=== PATIENT | male | born 1950 | race Caucasian/White ===

== ENCOUNTER 2017-11-26 14:00 | Inpatient (IN) | payer OTHER, SELFPAY ==
[2017-11-26 14:38] VITALS: BP 115/72; PULSE 94; RESP 20; TEMP 36.6; O2SAT 90; BMI 30.9
[2017-11-26 17:00] LABS: Bedside Glucose 91 mg/dL (70-110)
--- NOTE | 2017-11-26 18:03 | NURSING ---
and patient aware he is a fall risk and must ask for staff assist. [id number]
[2017-11-26 18:50] VITALS: O2SAT 95
[2017-11-26 19:40] VITALS: BP 123/88; PULSE 93; RESP 22; TEMP 36.7; O2SAT 92
[2017-11-26 20:54] VITALS: BMI 30.9
[2017-11-26] MEDS: Mirtazapine 30 MG Tablet PO (21:01)
[2017-11-26] MEDS: Senna/Docusate Sodium 1 Tablet 2 TABLET PO (21:01)
[2017-11-26] MEDS: Atorvastatin Calcium 80 MG Tablet PO (21:01)
[2017-11-27] MEDS: Enoxaparin 40 MG/0.4 ML Syringe SC (05:07)
[2017-11-27 06:56] LABS: Bedside Glucose 91 mg/dL (70-110)
[2017-11-27 07:27] VITALS: BP 125/79; PULSE 76; RESP 18; TEMP 36.4; O2SAT 93
[2017-11-27] MEDS: Lisinopril 5 MG Tablet PO (07:33)
[2017-11-27] MEDS: Sertraline 50 MG Tablet 25 MG PO (07:33)
[2017-11-27] MEDS: Aspirin 81 MG TAB.CHEW PO (07:33)
[2017-11-27] MEDS: Clopidogrel Bisulfate 75 MG Tablet PO (07:33)
[2017-11-27 07:44] LABS: Hematocrit 46.3 % (40-54); Hemoglobin 15.3 g/dl (13.0-16.5); Mean Corpuscular Hgb 29.8 pg (27.0-32.0); Mean Corpuscular Volume 90.1 fL (80-94); Mean Platelet Vol. 9.5 fl (6.2-12.0); Platelet Count 264 K/mm3 (150-450); RBC Distribution Width CV 12.9 % (11.6-14.6); RBC Distribution Width SD 42.4 fl (35.1-43.9); Red Blood Count 5.14 M/mm3 (4.6-6.2); White Blood Count 9.5 K/mm3 (4.4-11.0)
[2017-11-27 07:58] LABS: Scan Indicated on CBC? Y/N NO
[2017-11-27 08:10] LABS: Anion Gap 8 (5-15); BUN 17 mg/dL (7-18); BUN/Creat Ratio 18.3 RATIO (10-20); Calcium,Total 8.8 mg/dL (8.5-10.1); Chloride 101 mmol/L (98-107); Creatinine, Serum 0.93 mg/dL (0.70-1.30); EST Glomerular Filtration Rate 87 mL/min (>60); Est Glom Filt Rate - Afr Amer 105 mL/min (>60); Estimated Creatinine Clearance 76.61 ml/min; Glucose 84 mg/dL (74-106); Potassium 4.1 mmol/L (3.5-5.1); Sodium Level 136 mmol/L (136-145)
[2017-11-27 08:37] VITALS: BMI 30.9
--- NOTE | 2017-11-27 10:52 | PCM.HP.COS ---
History of Present Illness Date of Admission: 11/26/17 Chief Complaint: CVA The patient is a 67 year old right handed male admitted on 11/26/17 from [facility] to the rehab unit for rehabilitation for debility, s/p left basal ganglia, left occipital stoke and left M1/M2 stenosis. 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 The patient lives with in a 2 story home with at least 12 steps to get into the house. The patient was previously completely functionally independent, doing all his own ADLs. He is admitted to the rehab unit in order to restore his previous level of functional independence. Per OSH: Patient was last seen normal by his around 8:30 AM, Around 10 Am he was noted to have recurrent falls and right arm weakness. Was taken to [facility] his initial NIHSS was reported 17, then improved to 4. CT brain showed bilateral chronic cerebellar and thalamic infarcts, no acute changes. CTA brain showed thrombus in proximal left MCA and occluded L intracranial L ICA. He was transferred to [facility] where he was seen by Dr. Mendoza, it was determined that he was not a candidate for TPA since his weakness and fall occurred at 10 AM, he was out of the window. Past Medical History Allergies No Known Allergies Allergy (Verified 11/26/17 16:59) Home Medications: Ambulatory Orders Medication Instructions Recorded Aspirin [Aspirin, Baby] 81 mg PO DAILY@0800 11/26/17 Atorvastatin Calcium [Lipitor] 80 mg PO QHS 11/26/17 Clopidogrel Bisulfate [Plavix] 75 mg PO DAILY 11/26/17 Lisinopril [Zestril] 5 mg PO DAILY 11/26/17 Metformin HCl [Glucophage] 500 mg PO BIDCM 11/26/17 Mirtazapine [Remeron] 30 mg PO QHS 11/26/17 Sertraline HCl [Zoloft] 25 mg PO DAILY 11/26/17 Surgical History: - - Thrombectomy in 2014 Lives: Spouse/ Significant Other Smoking Status: Former smoker Tobacco Use: Non-smoker Alcohol: None Drugs: None Review of Systems Constitutional: Denies: Chills, Fever, Weight Change HEENT: Denies: Head Aches, Sinus Congestion, Sinus Drainage Cardiovascular: Denies: Chest Pain, Palpitations Respiratory: Denies: Cough, Shortness of breath at rest, Sputum production Gastrointestinal: Denies: Abdominal Pain, Nausea, Vomiting Genitourinary: Denies: Dysuria Musculoskeletal: Denies: Joint Pain, Joint Tenderness Skin: Denies: Rash, Wounds Neurological: Denies: Numbness, Tingling, Focal weakness Psychiatric: Denies: Anxiety, Depression, Homicidal Ideations, Suicidal Ideations Hematologic/ Lymphatic: Denies: Easy Bruising, Easy Bleeding VTE Information - Inpt Only VTE Present on Admission: No VTE Mechan Device Prophylaxis: SCD's, Knee High VERONIKA Hose VTE Pharm Prophylaxis ordered?: Yes Patient Problems: Active and Suspected Problems Stroke (Acute) - Physical Exam General: Alert, Oriented x3, Cooperative HEENT: Atraumatic, PERRLA, EOMI, Normocephalic Neck: Supple, No JVD, Negative Carotid Bruits Lungs: Clear to auscultation, Normal air movement Cardiovascular: Regular rate, No murmurs Abdomen: Bowel Sounds Present, Soft, Non Tender Extremities: No edema, Capillary Refill Less than 3 Seconds Skin: No rashes, No breakdown Musculoskeletal: No Tenderness to Palpation of Joints or Extremities Neurological: Cranial nerves II-XII grossly intact Psych/Mental Status: Normal Affect, Appropriate, Alert and oriented to time, place, person, mood and affect Vital Signs Temp Pulse Resp BP Pulse Ox 97.6 F L 76 18 125/79 H 93 11/27/17 07:27 11/27/17 07:27 11/27/17 07:27 11/27/17 07:27 11/27/17 07:27 Oxygen Delivery Method Room Air Weight: 89.8 kg Body Mass Index (BMI) 30.9 Intake and Output for Last 24 Hours 11/25/17 11/26/17 11/27/17 23:59 23:59 23:59 Intake Total 240 / 240 Output Total 400 / 400 200 / 200 Balance -400 / -400 40 / 40 Laboratory Tests Past 24 Hrs 11/27/17 11/27/17 07:26 07:26 WBC 9.5 RBC 5.14 Hgb 15.3 Hct 46.3 MCV 90.1 MCH 29.8 MCHC 33.0 RDW 12.9 RDW Differential 42.4 Plt Count 264 MPV 9.5 Sodium 136 Potassium 4.1 Chloride 101 Carbon Dioxide 27.0 Anion Gap 8 BUN 17 Creatinine 0.93 Estim Creat Clear Calc 76.61 Est GFR (MDRD) Af Amer 105 Est GFR (MDRD) Non-Af 87 BUN/Creatinine Ratio 18.3 Glucose 84 Calcium 8.8 POC Glucose 11/27/17 11/26/17 06:45 16:56 POC Glucose 91 91 Active Medications Acetaminophen (Tylenol) 650 mg PO Q6H PRN PRN PRN Reason: Mild Pain (0-3/10)/Headache Last Admin: 11/27/17 11:00 Dose: 650 mg Aspirin (Aspirin, Baby) 81 mg PO DAILY@0800 [facility] Last Admin: 11/28/17 07:51 Dose: 81 mg Atorvastatin Calcium (Lipitor) 80 mg PO QHS [facility] Last Admin: 11/27/17 21:39 Dose: 80 mg Bisacodyl (Dulcolax) 10 mg RECTAL .PRN X 1 PRN PRN Reason: Constipation Clopidogrel Bisulfate (Plavix) 75 mg PO DAILY [facility] Last Admin: 11/28/17 07:51 Dose: 75 mg Enoxaparin Sodium (Lovenox) 40 mg SC DAILY@0600 [facility] Last Admin: 11/28/17 05:24 Dose: 40 mg Lisinopril (Zestril) 5 mg PO DAILY [facility] Last Admin: 11/28/17 07:51 Dose: 5 mg Magnesium Hydroxide (Milk Of Magnesia) 30 ml PO .PRN X 1 PRN PRN Reason: Constipation [facility] Last Admin: 11/28/17 07:50 Dose: 500 mg Mirtazapine (Remeron) 30 mg PO QHS [facility] Last Admin: 11/27/17 21:39 Dose: 30 mg Senna/Docusate Sodium (Senokot-S, Paulina-Colace) 2 tablet PO BID [facility] Last Admin: 11/28/17 07:51 Dose: Not Given Sertraline HCl (Zoloft) 25 mg PO DAILY [facility] Last Admin: 11/28/17 07:50 Dose: 25 mg Assessment/Plan All Active Problems Stroke (Acute) Debility s/p left basal ganglia, left occipital stoke and left M1/M2 stenosis. 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 Goal of rehab is to restore previous level of functional independent. Plan: - Physical therapy for gait and balance - Occupational Therapy for ADLs - Speech therapy - As needed analgesics - Bowel protocol - Stroke prevention on ASA, Plavix, and Statin - DVT prophylaxis: SCDs, Lovenox - Hypertension: Stable with good control, continue Lisinopril. Keep BP < 130/80 mmHg - Check LDL and Hba1c - Goal Hba1c <7% - Diabetes type 2 => continue home medication.
[2017-11-27] MEDS: Acetaminophen 325 MG Tablet 650 MG PO (11:00)
--- NOTE | 2017-11-27 11:07 | HP.PCM.COS_ITS ---
History of Present Illness Date of Admission: 11/26/17 Chief Complaint: CVA The patient is a 67 year old right handed male admitted on 11/26/17 from [facility] to the rehab unit for rehabilitation for debility, s/p left basal ganglia, left occipital stoke and left M1/M2 stenosis. 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 The patient lives with in a 2 story home with at least 12 steps to get into the house. The patient was previously completely functionally independent, doing all his own ADLs. He is admitted to the rehab unit in order to restore his previous level of functional independence. Per OSH: Patient was last seen normal by his around 8:30 AM, Around 10 Am he was noted to have recurrent falls and right arm weakness. Was taken to [facility] his initial NIHSS was reported 17, then improved to 4. CT brain showed bilateral chronic cerebellar and thalamic infarcts, no acute changes. CTA brain showed thrombus in proximal left MCA and occluded L intracranial L ICA. He was transferred to [facility] where he was seen by Dr. Mendoza, it was determined that he was not a candidate for TPA since his weakness and fall occurred at 10 AM, he was out of the window. Past Medical History Allergies No Known Allergies Allergy (Verified 11/26/17 16:59) Home Medications: Ambulatory Orders Medication Instructions Recorded Aspirin [Aspirin, Baby] 81 mg PO DAILY@0800 11/26/17 Atorvastatin Calcium [Lipitor] 80 mg PO QHS 11/26/17 Clopidogrel Bisulfate [Plavix] 75 mg PO DAILY 11/26/17 Lisinopril [Zestril] 5 mg PO DAILY 11/26/17 Metformin HCl [Glucophage] 500 mg PO BIDCM 11/26/17 Mirtazapine [Remeron] 30 mg PO QHS 11/26/17 Sertraline HCl [Zoloft] 25 mg PO DAILY 11/26/17 Surgical History: - - Thrombectomy in 2014 Lives: Spouse/ Significant Other Smoking Status: Former smoker Tobacco Use: Non-smoker Alcohol: None Drugs: None Review of Systems Constitutional: Denies: Chills, Fever, Weight Change HEENT: Denies: Head Aches, Sinus Congestion, Sinus Drainage Cardiovascular: Denies: Chest Pain, Palpitations Respiratory: Denies: Cough, Shortness of breath at rest, Sputum production Gastrointestinal: Denies: Abdominal Pain, Nausea, Vomiting Genitourinary: Denies: Dysuria Musculoskeletal: Denies: Joint Pain, Joint Tenderness Skin: Denies: Rash, Wounds Neurological: Denies: Numbness, Tingling, Focal weakness Psychiatric: Denies: Anxiety, Depression, Homicidal Ideations, Suicidal Ideations Hematologic/ Lymphatic: Denies: Easy Bruising, Easy Bleeding VTE Information - Inpt Only VTE Present on Admission: No VTE Mechan Device Prophylaxis: SCD's, Knee High VERONIKA Hose VTE Pharm Prophylaxis ordered?: Yes Patient Problems: Active and Suspected Problems Stroke (Acute) - Physical Exam General: Alert, Oriented x3, Cooperative HEENT: Atraumatic, PERRLA, EOMI, Normocephalic Neck: Supple, No JVD, Negative Carotid Bruits Lungs: Clear to auscultation, Normal air movement Cardiovascular: Regular rate, No murmurs Abdomen: Bowel Sounds Present, Soft, Non Tender Extremities: No edema, Capillary Refill Less than 3 Seconds Skin: No rashes, No breakdown Musculoskeletal: No Tenderness to Palpation of Joints or Extremities Neurological: Cranial nerves II-XII grossly intact Psych/Mental Status: Normal Affect, Appropriate, Alert and oriented to time, place, person, mood and affect Vital Signs Temp Pulse Resp BP Pulse Ox 97.6 F L 76 18 125/79 H 93 11/27/17 07:27 11/27/17 07:27 11/27/17 07:27 11/27/17 07:27 11/27/17 07:27 Oxygen Delivery Method Room Air Weight: 89.8 kg Body Mass Index (BMI) 30.9 Intake and Output for Last 24 Hours 11/25/17 11/26/17 11/27/17 23:59 23:59 23:59 Intake Total 240 / 240 Output Total 400 / 400 200 / 200 Balance -400 / -400 40 / 40 Laboratory Tests Past 24 Hrs 11/27/17 11/27/17 07:26 07:26 WBC 9.5 RBC 5.14 Hgb 15.3 Hct 46.3 MCV 90.1 MCH 29.8 MCHC 33.0 RDW 12.9 RDW Differential 42.4 Plt Count 264 MPV 9.5 Sodium 136 Potassium 4.1 Chloride 101 Carbon Dioxide 27.0 Anion Gap 8 BUN 17 Creatinine 0.93 Estim Creat Clear Calc 76.61 Est GFR (MDRD) Af Amer 105 Est GFR (MDRD) Non-Af 87 BUN/Creatinine Ratio 18.3 Glucose 84 Calcium 8.8 POC Glucose 11/27/17 11/26/17 06:45 16:56 POC Glucose 91 91 Active Medications Acetaminophen (Tylenol) 650 mg PO Q6H PRN PRN PRN Reason: Mild Pain (0-3/10)/Headache Last Admin: 11/27/17 11:00 Dose: 650 mg Aspirin (Aspirin, Baby) 81 mg PO DAILY@0800 [facility] Last Admin: 11/28/17 07:51 Dose: 81 mg Atorvastatin Calcium (Lipitor) 80 mg PO QHS [facility] Last Admin: 11/27/17 21:39 Dose: 80 mg Bisacodyl (Dulcolax) 10 mg RECTAL .PRN X 1 PRN PRN Reason: Constipation Clopidogrel Bisulfate (Plavix) 75 mg PO DAILY [facility] Last Admin: 11/28/17 07:51 Dose: 75 mg Enoxaparin Sodium (Lovenox) 40 mg SC DAILY@0600 [facility] Last Admin: 11/28/17 05:24 Dose: 40 mg Lisinopril (Zestril) 5 mg PO DAILY [facility] Last Admin: 11/28/17 07:51 Dose: 5 mg Magnesium Hydroxide (Milk Of Magnesia) 30 ml PO .PRN X 1 PRN PRN Reason: Constipation [facility] Last Admin: 11/28/17 07:50 Dose: 500 mg Mirtazapine (Remeron) 30 mg PO QHS [facility] Last Admin: 11/27/17 21:39 Dose: 30 mg Senna/Docusate Sodium (Senokot-S, Paulina-Colace) 2 tablet PO BID [facility] Last Admin: 11/28/17 07:51 Dose: Not Given Sertraline HCl (Zoloft) 25 mg PO DAILY [facility] Last Admin: 11/28/17 07:50 Dose: 25 mg Assessment/Plan All Active Problems Stroke (Acute) Debility s/p left basal ganglia, left occipital stoke and left M1/M2 stenosis. 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 Goal of rehab is to restore previous level of functional independent. Plan: - Physical therapy for gait and balance - Occupational Therapy for ADLs - Speech therapy - As needed analgesics - Bowel protocol - Stroke prevention on ASA, Plavix, and Statin - DVT prophylaxis: SCDs, Lovenox - Hypertension: Stable with good control, continue Lisinopril. Keep BP < 130/80 mmHg - Check LDL and Hba1c - Goal Hba1c <7% - Diabetes type 2 => continue home medication.
[2017-11-27 11:42] VITALS: O2SAT 93
--- NOTE | 2017-11-27 11:51 | CASEMGMT ---
Social Work Completing assessment with patient. Patient spouse present during assessment. This social work manager noting that patient is private pay. Patient spouse voicing to be able to afford stay and if not then also able to ask the [facility] for financial support. This social work manager inquiring if patient and patient spouse would like this social work manager to make a referral to the [facility] Liaison, Kassie Reyna. Patient and patient spouse declining for this social work manager to make a referral to Kassie and are reporting to have all needs met at this time. Support given. Will continue to follow as needed. Елена RADER, [employer] C[employer] CEMENTER
--- NOTE | 2017-11-27 14:29 | PCM.RU.PYE ---
Admission Information Status Changes from Prescreening?: No changes Identified Actual Problem List:: Mobility Impaired, Self Care Deficit, Ineffective Communication, BP, Hypertension Potential Problem List:: DVT, Bleeding, Infection, UTI, Aspiration, Falls, Skin Integrity, Depression Risk of Complications DVT: LMWH, VERONIKA Hose, Sequential Compression Device Bleeding: Monitor Lab Values, Nursing to Teach Precautions for anti-coagulation therapy., Wound, if applicable, to be assessed every shift., Stroke patients assessed for lethargy or change in status. Infection: Clinical Staff to Monitor for S/S of infection:, S/S of infection include fever, redness, warmth, etc. Urinary Tract Infection: Monitor for frequency, burning, discomfort, or incontinence., Nursing will obtain urine sample for urinalysis and C&S when ordered. Aspiration: Clinical staff will monitor for coughing, drooling, congestion., Speech will evaluate swallowing and dsyphasia., Nursing will monitor patient swallowing during meals. Falls: Patient will be evaluated for Fall Precautions, Patient will be placed on Fall Precautions as indicated per protocol. Skin Breakdown: Nursing will assess skin daily using assessment tool., Nursing will place on Skin Breakdown Precautions as indicated. Pain: Clinical staff will assess patient's pain level per protocol., Medications will be given, if needed, and the pain level reassessed., Other methods: Massage, distraction, decrease stimulus, etc. used PRN. Plan of Care Patient requires physician specializing in physical medicine and rehab oversight to provide close medical supervision of rehab issues including: Pain Management, Sleep Problems, Bowel and Bladder, Medical and co-morbidity Management, DVT prophylaxis, Rehabilitation Leadership, Coordination of treatment team Patient needs Physical Therapy: For a minimum of 1 hour, At least 5 out of 7 days Patient needs Physical Therapy to improve:: Mobility, Mobility, Mobility, Strengthening, Transfers, Stretching, ROM, Endurance, Stairs, Gait, Balance Patient needs Occupational Therapy: For a minimum of 1 hour, At least 5 out of 7 days Patient needs Occupational Therapy to improve ADL's incl.: Eating, Grooming, Bathing, Dressing, Toileting, Toilet transfers, Community Reintegration, Higher functioning activities, Household tasks, Adaptive Equipment, Splinting, Other activities as determined Patient requires speech therapy: For a minimum of 1 hour, At least 5 out of 7 days Patient requires speech therapy for: Swallowing, Cognition, Language Skills, Compensatory Strategies Patient requires 24/7 Rehabilitation Nursing for: Pain Issues, Identifying and preventing risk factors, Monitoring and reporting current medical conditions, Assisting with ambulation, transfer, and all ADL's, Teaching patients about disease process and medications, Family teaching, Providing safe environment, Bowel and Bladder Issues, Skin integrity, Medication Management Patient needs Cardiovascular Disease Specialist/ Case Management for: Discharge Planning, Arranging Home Equipment or Services, Family Interventions Patient needs Dietary and Nutrition Services for: Adequate Nutrition, Nutritional Supplements, Nutritional Education Goals Patient will remain: free from falls, or injury at time of discharge. Patient will perform bed mobility at: MOD I level of assist. Patient will complete transfers from bed to chair at: MOD I level of assist. Patient will ambulate: 100 feet, with MOD I assist, with LRD Patient will complete upper body dressing at: MOD I level of assist. Patient will complete lower body dressing at: MOD I level of assist. Patient will complete toileting at: MOD I level of assist. Patient will perform bathing at: MOD I level of assist. Patient will complete grooming at: MOD I level of assist. Patient will complete home management skills at: MOD I level of assist. Patient will achieve: 12 stairs, at MOD I assist Patient will have pain level of: of 3 or less Patient's skin will: remain intact, free from infection. Patient will receive: adequate nutrition. Discharge Planning Pt Prognosis for Sig. Practical Improv. w/in Reasonable Time: Good Estimated Length of stay (days): 16 Anticipated D/C Destination: Home with Outpt Therapy Was Preadmission Assessment Accurate?: Yes
--- NOTE | 2017-11-27 15:01 | CON.PCM_ITS ---
Problem List (1) Stroke Status: Acute Reason for Consult Date of Consultation: 11/27/17 Reason for Consultation: for medical management History of Present Illness: The patient is a 67 year old M with a PMH of HTN and hyperlipidemia as well as previous CVA with mild right sided residual weakness. He was admitted to the rehab unit from [facility]. He was admitted there on 11/16/17 with a complaint of falls and right sided weakness. He was found to have a left sided CVA with right sided weakness. He was found to have left basal ganglia nad left occipital stroke and left M1/M2 stenosis. Hospitalist service was consulted for medical management. Patient seen and examined with his by him. He has no complaints. He denies any fever, chills, cough, chest pain, SOB, abdominal pain, diarrhea or vomiting. Review of systems is otherwise negative. Past Medical History Allergies No Known Allergies Allergy (Verified 11/26/17 16:59) Home Medications: Ambulatory Orders Medication Instructions Recorded Aspirin [Aspirin, Baby] 81 mg PO DAILY@0800 11/26/17 Atorvastatin Calcium [Lipitor] 80 mg PO QHS 11/26/17 Clopidogrel Bisulfate [Plavix] 75 mg PO DAILY 11/26/17 Lisinopril [Zestril] 5 mg PO DAILY 11/26/17 Metformin HCl [Glucophage] 500 mg PO BIDCM 11/26/17 Mirtazapine [Remeron] 30 mg PO QHS 11/26/17 Sertraline HCl [Zoloft] 25 mg PO DAILY 11/26/17 Surgical History: no surgical history Psychiatric History: No pertinent psych hx Lives: With Family Smoking Status: Former smoker Tobacco Use: Non-smoker Alcohol: None Drugs: None Review of Systems Constitutional: Denies: Chills, Fever, Weight Change Eyes: Denies: Blurred vision HEENT: Denies: Head Aches, Sinus Congestion, Sinus Drainage Cardiovascular: Denies: Chest Pain, Claudication, Chest Tightness, Edema, Heaviness, Light Headedness, Orthopnea, Palpitations Respiratory: Denies: Cough, Pleuritic Pain, Shortness of Breath, Shortness of breath at rest, Shortness of breath upon exertion, Sputum production, Wheezing Gastrointestinal: Denies: Abdominal Pain, Nausea, Vomiting Genitourinary: Denies: Dysuria Musculoskeletal: Denies: Joint Pain, Joint Tenderness Skin: Denies: Rash, Wounds Neurological: Reports: Focal weakness - mild RUE and RLE weakness.. Denies: Blurred vision, Double vision, Change in Speech, Slurred speech, Numbness, Tingling Psychiatric: Denies: Anxiety, Depression, Homicidal Ideations, Suicidal Ideations Hematologic/ Lymphatic: Denies: Easy Bruising, Easy Bleeding Patient Problems: Active and Suspected Problems Stroke (Acute) - Physical Exam General: Alert, Oriented x3, Cooperative, No apparent distress HEENT: Atraumatic, PERRLA, EOMI, Normocephalic Oral: Moist Mucosa Neck: Supple, No JVD, Negative Carotid Bruits Lungs: Clear to auscultation, Normal air movement, No rhonchi, No wheeze, No rales Cardiovascular: Regular rate, Regular Rhythm, Normal S1, Normal S2, No murmurs Abdomen: Bowel Sounds Present, Soft, Non Tender, Non-Distended, No Hepato- splenomegaly Extremities: No clubbing, No cyanosis, No edema, Capillary Refill Less than 3 Seconds Skin: No rashes, No breakdown Musculoskeletal: No Tenderness to Palpation of Joints or Extremities Lymphatic: No Cervical, Supraclavicular, or Inguinal Adenopathy Neurological: Cranial nerves II-XII grossly intact, Muscle tone normal, Sensory exam intact to light touch and pain, Coordination normal, - - power 4-/5 in RLE and 5/5 in all other extremities Psych/Mental Status: Normal Affect, Appropriate, Alert and oriented to time, place, person, mood and affect Vital Signs Temp Pulse Resp BP Pulse Ox 97.6 F L 76 18 125/79 H 93 11/27/17 07:27 11/27/17 07:27 11/27/17 07:27 11/27/17 07:27 11/27/17 11:42 Oxygen Delivery Method Room Air Weight: 197 lb 15.602 oz Body Mass Index (BMI) 30.9 Intake and Output for Last 24 Hours 11/25/17 11/26/17 11/27/17 23:59 23:59 23:59 Intake Total 240 / 240 Output Total 400 / 400 200 / 200 Balance -400 / -400 40 / 40 Laboratory Tests Past 24 Hrs 11/27/17 11/27/17 11/27/17 07:26 07:26 07:26 WBC 9.5 RBC 5.14 Hgb 15.3 Hct 46.3 MCV 90.1 MCH 29.8 MCHC 33.0 RDW 12.9 RDW Differential 42.4 Plt Count 264 MPV 9.5 Sodium 136 Potassium 4.1 Chloride 101 Carbon Dioxide 27.0 Anion Gap 8 BUN 17 Creatinine 0.93 Estim Creat Clear Calc 76.61 Est GFR (MDRD) Af Amer 105 Est GFR (MDRD) Non-Af 87 BUN/Creatinine Ratio 18.3 Glucose 84 Hemoglobin A1c 6.0 Calcium 8.8 POC Glucose 11/27/17 11/26/17 06:45 16:56 POC Glucose 91 91 Assessment/Plan All Active Problems Stroke (Acute) 67 y/o male admitted from [facility] for rehab after a stroke 1. CVA with residual right sided weakness * stable * neurology on board; mild RLE weakness. No slurring of his pseech * on aspirin, plavix and statin * for intensive PT/OT * 2. HTN * controlled * on lisinopril 5mg daily * 3. Hyperlipidemia: on atorvastatin 40mg daily 4.Impaired glucose tolerance: * patient and denied he has diabetes. A1C is 6. Unclear therefore why he is on metformin 500mg bid; it is likely o/a of impaired glucose tolerance.. Accuchecks ACHS. 5. DVT prophylaxis: lovenox 40mg daily. Code Visit Inpatient E&M: 26405 Init Hosp L2
[2017-11-27 19:12] VITALS: BMI 30.9
[2017-11-27 19:29] VITALS: BP 130/80; PULSE 83; RESP 20; TEMP 36.8; O2SAT 94
[2017-11-27] MEDS: Senna/Docusate Sodium 1 Tablet 2 TABLET PO (21:39)
[2017-11-27] MEDS: Atorvastatin Calcium 80 MG Tablet PO (21:39)
[2017-11-27] MEDS: Mirtazapine 30 MG Tablet PO (21:39)
[2017-11-27 21:40] VITALS: PULSE 83; RESP 20; O2SAT 94
--- NOTE | 2017-11-28 03:02 | NURSING ---
Reviewed and agree with SPRING ASSEMBLER SUPERVISOR documentation and [facility] charting.
[2017-11-28] MEDS: Enoxaparin 40 MG/0.4 ML Syringe SC (05:24)
[2017-11-28 06:31] LABS: Bedside Glucose 91 mg/dL (70-110)
[2017-11-28 07:03] VITALS: O2SAT 94
[2017-11-28 07:31] VITALS: BP 140/77; PULSE 77; RESP 16; TEMP 36.9; O2SAT 98
[2017-11-28] MEDS: Sertraline 50 MG Tablet 25 MG PO (07:50)
[2017-11-28] MEDS: Lisinopril 5 MG Tablet PO (07:51)
[2017-11-28] MEDS: Aspirin 81 MG TAB.CHEW PO (07:51)
[2017-11-28] MEDS: Clopidogrel Bisulfate 75 MG Tablet PO (07:51)
[2017-11-28 10:54] VITALS: BMI 30.9
--- NOTE | 2017-11-28 16:55 | PCM.PN.NEU ---
Patient Problems: Active and Suspected Problems Stroke (Acute) Subjective: Patient seen and examined. No new complaints. Tolerating therapy. No issues with GI/. Tolerating cardiac diet. Denies any shortness of breath, blurry vision or double vision. - Physical Exam General: Alert, Oriented x3, Cooperative HEENT: Atraumatic, PERRLA, EOMI, Normocephalic Neck: Supple, No JVD, Negative Carotid Bruits Lungs: Clear to auscultation, Normal air movement Cardiovascular: Regular rate, No murmurs Abdomen: Bowel Sounds Present, Soft, Non Tender Extremities: No edema, Capillary Refill Less than 3 Seconds Skin: No rashes, No breakdown Musculoskeletal: No Tenderness to Palpation of Joints or Extremities Neurological: Cranial nerves II-XII grossly intact Psych/Mental Status: Normal Affect, Appropriate, Alert and oriented to time, place, person, mood and affect Vital Signs Temp Pulse Resp BP Pulse Ox 98.4 F 77 16 140/77 H 98 11/28/17 07:31 11/28/17 07:31 11/28/17 07:31 11/28/17 07:31 11/28/17 07:31 Oxygen Delivery Method Room Air Weight: 89.8 kg Body Mass Index (BMI) 30.9 Intake and Output for Last 24 Hours 11/26/17 11/27/17 11/28/17 23:59 23:59 23:59 Intake Total 240 / 240 640 / 640 Output Total 400 / 400 200 / 200 Balance -400 / -400 40 / 40 640 / 640 POC Glucose 11/28/17 06:21 POC Glucose 91 Active Medications Acetaminophen (Tylenol) 650 mg PO Q6H PRN PRN PRN Reason: Mild Pain (0-3/10)/Headache Last Admin: 11/27/17 11:00 Dose: 650 mg Aspirin (Aspirin, Baby) 81 mg PO DAILY@0800 [facility] Last Admin: 11/28/17 07:51 Dose: 81 mg Atorvastatin Calcium (Lipitor) 80 mg PO QHS [facility] Last Admin: 11/27/17 21:39 Dose: 80 mg Bisacodyl (Dulcolax) 10 mg RECTAL .PRN X 1 PRN PRN Reason: Constipation Clopidogrel Bisulfate (Plavix) 75 mg PO DAILY [facility] Last Admin: 11/28/17 07:51 Dose: 75 mg Enoxaparin Sodium (Lovenox) 40 mg SC DAILY@0600 [facility] Last Admin: 11/28/17 05:24 Dose: 40 mg Lisinopril (Zestril) 5 mg PO DAILY [facility] Last Admin: 11/28/17 07:51 Dose: 5 mg Magnesium Hydroxide (Milk Of Magnesia) 30 ml PO .PRN X 1 PRN PRN Reason: Constipation Metformin HCl (Glucophage) 500 mg PO BIDCM [facility] Last Admin: 11/28/17 07:50 Dose: 500 mg Mirtazapine (Remeron) 30 mg PO QHS [facility] Last Admin: 11/27/17 21:39 Dose: 30 mg Senna/Docusate Sodium (Senokot-S, Paulina-Colace) 2 tablet PO BID [facility] Last Admin: 11/28/17 07:51 Dose: Not Given Sertraline HCl (Zoloft) 25 mg PO DAILY [facility] Last Admin: 11/28/17 07:50 Dose: 25 mg Medical Necessity - Tobacco Use Smoking Status: Former smoker Tobacco Use: Non-smoker Assessment/Plan All Active Problems Stroke (Acute) Debility s/p left basal ganglia, left occipital stoke and left M1/M2 stenosis. 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 Goal of rehab is to restore previous level of functional independent. Plan: - Physical therapy for gait and balance - Occupational Therapy for ADLs - Speech therapy - As needed analgesics - Bowel protocol - Stroke prevention on ASA, Plavix, and Statin - DVT prophylaxis: SCDs, Lovenox - Hypertension: Stable with good control, continue Lisinopril. Keep BP < 130/80 mmHg - Check LDL and Hba1c - Goal Hba1c <7% - Diabetes type 2 => continue home medication.
--- NOTE | 2017-11-28 16:58 | PN.NEURO_ITS ---
Patient Problems: Active and Suspected Problems Stroke (Acute) Subjective: Patient seen and examined. No new complaints. Tolerating therapy. No issues with GI/. Tolerating cardiac diet. Denies any shortness of breath, blurry vision or double vision. - Physical Exam General: Alert, Oriented x3, Cooperative HEENT: Atraumatic, PERRLA, EOMI, Normocephalic Neck: Supple, No JVD, Negative Carotid Bruits Lungs: Clear to auscultation, Normal air movement Cardiovascular: Regular rate, No murmurs Abdomen: Bowel Sounds Present, Soft, Non Tender Extremities: No edema, Capillary Refill Less than 3 Seconds Skin: No rashes, No breakdown Musculoskeletal: No Tenderness to Palpation of Joints or Extremities Neurological: Cranial nerves II-XII grossly intact Psych/Mental Status: Normal Affect, Appropriate, Alert and oriented to time, place, person, mood and affect Vital Signs Temp Pulse Resp BP Pulse Ox 98.4 F 77 16 140/77 H 98 11/28/17 07:31 11/28/17 07:31 11/28/17 07:31 11/28/17 07:31 11/28/17 07:31 Oxygen Delivery Method Room Air Weight: 89.8 kg Body Mass Index (BMI) 30.9 Intake and Output for Last 24 Hours 11/26/17 11/27/17 11/28/17 23:59 23:59 23:59 Intake Total 240 / 240 640 / 640 Output Total 400 / 400 200 / 200 Balance -400 / -400 40 / 40 640 / 640 POC Glucose 11/28/17 06:21 POC Glucose 91 Active Medications Acetaminophen (Tylenol) 650 mg PO Q6H PRN PRN PRN Reason: Mild Pain (0-3/10)/Headache Last Admin: 11/27/17 11:00 Dose: 650 mg Aspirin (Aspirin, Baby) 81 mg PO DAILY@0800 [facility] Last Admin: 11/28/17 07:51 Dose: 81 mg Atorvastatin Calcium (Lipitor) 80 mg PO QHS [facility] Last Admin: 11/27/17 21:39 Dose: 80 mg Bisacodyl (Dulcolax) 10 mg RECTAL .PRN X 1 PRN PRN Reason: Constipation Clopidogrel Bisulfate (Plavix) 75 mg PO DAILY [facility] Last Admin: 11/28/17 07:51 Dose: 75 mg Enoxaparin Sodium (Lovenox) 40 mg SC DAILY@0600 [facility] Last Admin: 11/28/17 05:24 Dose: 40 mg Lisinopril (Zestril) 5 mg PO DAILY [facility] Last Admin: 11/28/17 07:51 Dose: 5 mg Magnesium Hydroxide (Milk Of Magnesia) 30 ml PO .PRN X 1 PRN PRN Reason: Constipation Metformin HCl (Glucophage) 500 mg PO BIDCM [facility] Last Admin: 11/28/17 07:50 Dose: 500 mg Mirtazapine (Remeron) 30 mg PO QHS [facility] Last Admin: 11/27/17 21:39 Dose: 30 mg Senna/Docusate Sodium (Senokot-S, Paulina-Colace) 2 tablet PO BID [facility] Last Admin: 11/28/17 07:51 Dose: Not Given Sertraline HCl (Zoloft) 25 mg PO DAILY [facility] Last Admin: 11/28/17 07:50 Dose: 25 mg Medical Necessity - Tobacco Use Smoking Status: Former smoker Tobacco Use: Non-smoker Assessment/Plan All Active Problems Stroke (Acute) Debility s/p left basal ganglia, left occipital stoke and left M1/M2 stenosis. 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 Goal of rehab is to restore previous level of functional independent. Plan: - Physical therapy for gait and balance - Occupational Therapy for ADLs - Speech therapy - As needed analgesics - Bowel protocol - Stroke prevention on ASA, Plavix, and Statin - DVT prophylaxis: SCDs, Lovenox - Hypertension: Stable with good control, continue Lisinopril. Keep BP < 130/80 mmHg - Check LDL and Hba1c - Goal Hba1c <7% - Diabetes type 2 => continue home medication.
[2017-11-28] MEDS: Mirtazapine 30 MG Tablet PO (20:52)
[2017-11-28] MEDS: Atorvastatin Calcium 80 MG Tablet PO (20:52)
[2017-11-28 22:00] VITALS: BP 126/68; PULSE 86; RESP 20; TEMP 36.7; O2SAT 91
[2017-11-29 00:12] VITALS: BMI 30.9
--- NOTE | 2017-11-29 00:50 | NURSING ---
Reviewed and agree with LPNs fims and handoff
[2017-11-29 06:36] LABS: Bedside Glucose 91 mg/dL (70-110)
[2017-11-29] MEDS: Enoxaparin 40 MG/0.4 ML Syringe SC (06:42)
[2017-11-29] MEDS: Sertraline 50 MG Tablet 25 MG PO (07:53)
[2017-11-29] MEDS: Clopidogrel Bisulfate 75 MG Tablet PO (07:53)
[2017-11-29] MEDS: Aspirin 81 MG TAB.CHEW PO (07:53)
[2017-11-29] MEDS: Lisinopril 5 MG Tablet PO (07:53)
[2017-11-29 12:08] VITALS: BP 116/62; PULSE 68; RESP 20; TEMP 36.4; O2SAT 91
[2017-11-29 14:14] VITALS: BMI 30.9
--- NOTE | 2017-11-29 15:58 | PN_ITS ---
Patient Problems: Active and Suspected Problems Stroke (Acute) Subjective: The patient is a 67 year old M with a PMH of HTN and hyperlipidemia as well as previous CVA with mild right sided residual weakness. He was admitted to the rehab unit from [facility]. He was admitted there on 11/16/17 with a complaint of falls and right sided weakness. He was found to have a left sided CVA with right sided weakness. He was found to have left basal ganglia and left occipital stroke and left M1/M2 stenosis. He has remained stable Patient seen and examined. is by his bedside. He had no complaints and felt well. He denied any fever chills, any shortness of breath of any cough chest pain, abdominal pain, any diarrhea vomiting. Review of systems otherwise negative Vitals/I&O's: Vital Signs Temp Pulse Resp BP Pulse Ox 97.6 F L 68 20 H 116/62 91 11/29/17 12:08 11/29/17 12:08 11/29/17 12:08 11/29/17 12:08 11/29/17 12:08 Oxygen Delivery Method Room Air Weight: 197 lb 15.602 oz Body Mass Index (BMI) 30.9 Intake and Output for Last 24 Hours 11/27/17 11/28/17 11/29/17 23:59 23:59 23:59 Intake Total 240 / 240 880 / 880 680 / 680 Output Total 200 / 200 Balance 40 / 40 880 / 880 680 / 680 General: Alert, Oriented x3, Cooperative, No apparent distress HEENT: Atraumatic, PERRLA, EOMI, Normocephalic Oral: Moist Mucosa Neck: Supple, No JVD, Negative Carotid Bruits Lungs: Clear to auscultation, Normal air movement, No rhonchi, No wheeze Cardiovascular: Regular rate, Regular Rhythm, Normal S1, Normal S2, No murmurs Abdomen: Bowel Sounds Present, Soft, Non Tender, Non-Distended, No Hepato- splenomegaly Extremities: No clubbing, No cyanosis, No edema, Capillary Refill Less than 3 Seconds Skin: No rashes, No breakdown Musculoskeletal: No Tenderness to Palpation of Joints or Extremities Lymphatic: No Cervical, Supraclavicular, or Inguinal Adenopathy Neurological: Cranial nerves II-XII grossly intact, Neuro grossly intact, Motor Exam 5/5 strength throughout Psych/Mental Status: Normal Affect, Appropriate, Alert and oriented to time, place, person, mood and affect Laboratory Results 11/29/17 06:33: POC Glucose 91 Current Medications Acetaminophen (Tylenol) 650 mg PO Q6H PRN PRN PRN Reason: Mild Pain (0-3/10)/Headache Last Admin: 11/27/17 11:00 Dose: 650 mg Aspirin (Aspirin, Baby) 81 mg PO DAILY@0800 [facility] Last Admin: 11/29/17 07:53 Dose: 81 mg Atorvastatin Calcium (Lipitor) 80 mg PO QHS [facility] Last Admin: 11/28/17 20:52 Dose: 80 mg Bisacodyl (Dulcolax) 10 mg RECTAL .PRN X 1 PRN PRN Reason: Constipation Clopidogrel Bisulfate (Plavix) 75 mg PO DAILY [facility] Last Admin: 11/29/17 07:53 Dose: 75 mg Enoxaparin Sodium (Lovenox) 40 mg SC DAILY@0600 [facility] Last Admin: 11/29/17 06:42 Dose: 40 mg Lisinopril (Zestril) 5 mg PO DAILY [facility] Last Admin: 11/29/17 07:53 Dose: 5 mg Magnesium Hydroxide (Milk Of Magnesia) 30 ml PO .PRN X 1 PRN PRN Reason: Constipation [facility] Last Admin: 11/29/17 07:53 Dose: 500 mg Mirtazapine (Remeron) 30 mg PO QHS [facility] Last Admin: 11/28/17 20:52 Dose: 30 mg Senna/Docusate Sodium (Senokot-S, Paulina-Colace) 2 tablet PO BID [facility] Last Admin: 11/29/17 15:16 Dose: Not Given Sertraline HCl (Zoloft) 25 mg PO DAILY [facility] Last Admin: 11/29/17 07:53 Dose: 25 mg Medical Necessity - Tobacco Use Smoking Status: Former smoker Tobacco Use: Non-smoker Assessment/Plan All Active Problems Stroke (Acute) 67 y/o male admitted from [facility] for rehab after a stroke 1. CVA with residual right sided weakness * stable * neurology on board; neuro exam is intact, with normal power and tone in all extremities. * on aspirin, plavix and statin * for intensive PT/OT * 2. HTN * controlled * on lisinopril 5mg daily * 3. Hyperlipidemia: on atorvastatin 40mg daily 4.Impaired glucose tolerance: * A1C-6; accuchecks ACHS. on metformin 500mg bid. * * 5. DVT prophylaxis: lovenox 40mg daily. Code Visit Inpatient E&M: 02983 Subs Hosp L2
[2017-11-29] MEDS: Atorvastatin Calcium 80 MG Tablet PO (20:02)
[2017-11-29] MEDS: Mirtazapine 30 MG Tablet PO (20:02)
[2017-11-29 20:07] VITALS: BP 127/67; PULSE 77; RESP 20; TEMP 36.8; O2SAT 95
[2017-11-29 20:09] VITALS: RESP 20
[2017-11-30 00:55] VITALS: BMI 30.9
--- NOTE | 2017-11-30 02:42 | NURSING ---
REVIEWED AND AGREE WITH HAND UMBRELLA TIPPER'S FIM AND HANDOFF CHARTING.
[2017-11-30] MEDS: Enoxaparin 40 MG/0.4 ML Syringe SC (06:25)
[2017-11-30 06:51] LABS: Bedside Glucose 90 mg/dL (70-110)
[2017-11-30 07:30] VITALS: BP 121/78; PULSE 75; RESP 20; TEMP 36.6; O2SAT 93
[2017-11-30] MEDS: Clopidogrel Bisulfate 75 MG Tablet PO (08:59)
[2017-11-30] MEDS: Aspirin 81 MG TAB.CHEW PO (08:59)
[2017-11-30] MEDS: Sertraline 50 MG Tablet 25 MG PO (08:59)
[2017-11-30] MEDS: Lisinopril 5 MG Tablet PO (08:59)
[2017-11-30 11:34] VITALS: BMI 30.9
[2017-11-30 19:30] VITALS: PULSE 95; RESP 20; O2SAT 95; BMI 30.9
[2017-11-30 19:46] VITALS: BP 122/79; PULSE 95; RESP 18; TEMP 36.6; O2SAT 95
[2017-11-30] MEDS: Atorvastatin Calcium 80 MG Tablet PO (20:02)
[2017-11-30] MEDS: Mirtazapine 30 MG Tablet PO (20:02)
--- NOTE | 2017-12-01 02:32 | NURSING ---
REVIEWED AND AGREE WITH HOOKER LASTER'S FIM AND HANDOFF CHARTING.
[2017-12-01] MEDS: Enoxaparin 40 MG/0.4 ML Syringe SC (07:03)
[2017-12-01 07:05] LABS: Bedside Glucose 93 mg/dL (70-110)
[2017-12-01] MEDS: Clopidogrel Bisulfate 75 MG Tablet PO (07:33)
[2017-12-01] MEDS: Sertraline 50 MG Tablet 25 MG PO (07:33)
[2017-12-01] MEDS: Aspirin 81 MG TAB.CHEW PO (07:33)
[2017-12-01] MEDS: Lisinopril 5 MG Tablet PO (07:34)
[2017-12-01 10:00] VITALS: BP 106/60; RESP 18; TEMP 36.5; O2SAT 94
[2017-12-01 14:37] VITALS: BMI 30.9
[2017-12-01 19:30] VITALS: BP 124/81; PULSE 82; RESP 20; TEMP 36.6; O2SAT 96; BMI 30.9
[2017-12-01] MEDS: Mirtazapine 30 MG Tablet PO (19:47)
[2017-12-01] MEDS: Atorvastatin Calcium 80 MG Tablet PO (19:47)
--- NOTE | 2017-12-02 03:48 | NURSING ---
REVIEWED AND AGREE WITH [employer]BILE [employer]'S FIM AND HANDOFF CHARTING.
[2017-12-02] MEDS: Enoxaparin 40 MG/0.4 ML Syringe SC (06:18)
[2017-12-02 07:01] LABS: Bedside Glucose 101 mg/dL (70-110)
[2017-12-02 07:21] VITALS: BP 131/88; PULSE 68; RESP 18; TEMP 36.6; O2SAT 96
[2017-12-02] MEDS: Lisinopril 5 MG Tablet PO (07:23)
[2017-12-02] MEDS: Aspirin 81 MG TAB.CHEW PO (07:23)
[2017-12-02] MEDS: Sertraline 50 MG Tablet 25 MG PO (07:23)
[2017-12-02] MEDS: Clopidogrel Bisulfate 75 MG Tablet PO (07:23)
[2017-12-02 08:47] VITALS: BMI 30.9
--- NOTE | 2017-12-02 10:37 | PCM.PN.NEU ---
Patient Problems: Active and Suspected Problems Stroke (Acute) Subjective: Staffed in team meeting. Family at bedside, questions answered. With Physical therapy, he is stand by assist for getting in and out of bed, and coming to a stand from a sitting position. He is able to walk about 130 feet with a walker at contact guard, he does occasionally requires cues to take bigger steps when walking. They have noted some right leg coordination issues which they will continue to work on in the coming week. With Occupational therapy, he is supervision for setup to do his personal care of his upper body, and contact guard for his lower body, and toileting. He does require cues to use his right hand at times. With Speech therapy, they are continuing to work on his problems with his expressive language and memory recall. He is on a regular diet with thin liquids, and is doing well, does require occasional cues to take smaller bites and sips. With Nursing he is minimal assistance for toileting, he is having some issues with incontinence at times, he is able to tell the staff he has to go but is unable to hold it until they arrive to take him to the bathroom. Will start family training on Saturday and , with possible discharge on Saturday. - Physical Exam General: Alert, Oriented x3, Cooperative HEENT: Atraumatic, PERRLA, EOMI, Normocephalic Neck: Supple, No JVD, Negative Carotid Bruits Lungs: Clear to auscultation, Normal air movement Cardiovascular: Regular rate, No murmurs Abdomen: Bowel Sounds Present, Soft, Non Tender Extremities: No edema, Capillary Refill Less than 3 Seconds Skin: No rashes, No breakdown Musculoskeletal: No Tenderness to Palpation of Joints or Extremities Neurological: Cranial nerves II-XII grossly intact Psych/Mental Status: Normal Affect, Appropriate, Alert and oriented to time, place, person, mood and affect Vital Signs Temp Pulse Resp BP Pulse Ox 97.9 F 68 18 131/88 H 96 12/02/17 07:21 12/02/17 07:21 12/02/17 07:21 12/02/17 07:21 12/02/17 07:21 Oxygen Delivery Method Room Air Weight: 89.8 kg Body Mass Index (BMI) 30.9 Intake and Output for Last 24 Hours 11/30/17 12/01/17 12/02/17 23:59 23:59 23:59 Intake Total 960 / 960 600 / 600 Balance 960 / 960 600 / 600 POC Glucose 12/02/17 06:54 POC Glucose 101 Active Medications Acetaminophen (Tylenol) 650 mg PO Q6H PRN PRN PRN Reason: Mild Pain (0-3/10)/Headache Last Admin: 11/27/17 11:00 Dose: 650 mg Aspirin (Aspirin, Baby) 81 mg PO DAILY@0800 [facility] Last Admin: 12/02/17 07:23 Dose: 81 mg Atorvastatin Calcium (Lipitor) 80 mg PO QHS [facility] Last Admin: 12/01/17 19:47 Dose: 80 mg Bisacodyl (Dulcolax) 10 mg RECTAL .PRN X 1 PRN PRN Reason: Constipation Clopidogrel Bisulfate (Plavix) 75 mg PO DAILY [facility] Last Admin: 12/02/17 07:23 Dose: 75 mg Enoxaparin Sodium (Lovenox) 40 mg SC DAILY@0600 [facility] Last Admin: 12/02/17 06:18 Dose: 40 mg Lisinopril (Zestril) 5 mg PO DAILY [facility] Last Admin: 12/02/17 07:23 Dose: 5 mg Magnesium Hydroxide (Milk Of Magnesia) 30 ml PO .PRN X 1 PRN PRN Reason: Constipation [facility] Last Admin: 12/02/17 07:23 Dose: 500 mg Mirtazapine (Remeron) 30 mg PO QHS [facility] Last Admin: 12/01/17 19:47 Dose: 30 mg Senna/Docusate Sodium (Senokot-S, Paulina-Colace) 2 tablet PO BID [facility] Last Admin: 12/02/17 07:22 Dose: Not Given Sertraline HCl (Zoloft) 25 mg PO DAILY [facility] Last Admin: 12/02/17 07:23 Dose: 25 mg Medical Necessity - Tobacco Use Smoking Status: Former smoker Tobacco Use: Non-smoker Assessment/Plan All Active Problems Stroke (Acute) Debility s/p left basal ganglia, left occipital stoke and left M1/M2 stenosis. 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 Goal of rehab is to restore previous level of functional independent. Plan: - Physical therapy for gait and balance - Occupational Therapy for ADLs - Speech therapy - As needed analgesics - Bowel protocol - Stroke prevention on ASA, Plavix, and Statin - DVT prophylaxis: SCDs, Lovenox - Hypertension: Stable with good control, continue Lisinopril. Keep BP < 130/80 mmHg - Check LDL and Hba1c - Goal Hba1c <7% - Diabetes type 2 => continue home medication. - Start Family training on Saturday and , with possible discharge home on Saturday afternoon.
--- NOTE | 2017-12-02 10:49 | PN.NEURO_ITS ---
Patient Problems: Active and Suspected Problems Stroke (Acute) Subjective: Staffed in team meeting. Family at bedside, questions answered. With Physical therapy, he is stand by assist for getting in and out of bed, and coming to a stand from a sitting position. He is able to walk about 130 feet with a walker at contact guard, he does occasionally requires cues to take bigger steps when walking. They have noted some right leg coordination issues which they will continue to work on in the coming week. With Occupational therapy, he is supervision for setup to do his personal care of his upper body, and contact guard for his lower body, and toileting. He does require cues to use his right hand at times. With Speech therapy, they are continuing to work on his problems with his expressive language and memory recall. He is on a regular diet with thin liquids, and is doing well, does require occasional cues to take smaller bites and sips. With Nursing he is minimal assistance for toileting, he is having some issues with incontinence at times, he is able to tell the staff he has to go but is unable to hold it until they arrive to take him to the bathroom. Will start family training on Saturday and , with possible discharge on Saturday. - Physical Exam General: Alert, Oriented x3, Cooperative HEENT: Atraumatic, PERRLA, EOMI, Normocephalic Neck: Supple, No JVD, Negative Carotid Bruits Lungs: Clear to auscultation, Normal air movement Cardiovascular: Regular rate, No murmurs Abdomen: Bowel Sounds Present, Soft, Non Tender Extremities: No edema, Capillary Refill Less than 3 Seconds Skin: No rashes, No breakdown Musculoskeletal: No Tenderness to Palpation of Joints or Extremities Neurological: Cranial nerves II-XII grossly intact Psych/Mental Status: Normal Affect, Appropriate, Alert and oriented to time, place, person, mood and affect Vital Signs Temp Pulse Resp BP Pulse Ox 97.9 F 68 18 131/88 H 96 12/02/17 07:21 12/02/17 07:21 12/02/17 07:21 12/02/17 07:21 12/02/17 07:21 Oxygen Delivery Method Room Air Weight: 89.8 kg Body Mass Index (BMI) 30.9 Intake and Output for Last 24 Hours 11/30/17 12/01/17 12/02/17 23:59 23:59 23:59 Intake Total 960 / 960 600 / 600 Balance 960 / 960 600 / 600 POC Glucose 12/02/17 06:54 POC Glucose 101 Active Medications Acetaminophen (Tylenol) 650 mg PO Q6H PRN PRN PRN Reason: Mild Pain (0-3/10)/Headache Last Admin: 11/27/17 11:00 Dose: 650 mg Aspirin (Aspirin, Baby) 81 mg PO DAILY@0800 [facility] Last Admin: 12/02/17 07:23 Dose: 81 mg Atorvastatin Calcium (Lipitor) 80 mg PO QHS [facility] Last Admin: 12/01/17 19:47 Dose: 80 mg Bisacodyl (Dulcolax) 10 mg RECTAL .PRN X 1 PRN PRN Reason: Constipation Clopidogrel Bisulfate (Plavix) 75 mg PO DAILY [facility] Last Admin: 12/02/17 07:23 Dose: 75 mg Enoxaparin Sodium (Lovenox) 40 mg SC DAILY@0600 [facility] Last Admin: 12/02/17 06:18 Dose: 40 mg Lisinopril (Zestril) 5 mg PO DAILY [facility] Last Admin: 12/02/17 07:23 Dose: 5 mg Magnesium Hydroxide (Milk Of Magnesia) 30 ml PO .PRN X 1 PRN PRN Reason: Constipation [facility] Last Admin: 12/02/17 07:23 Dose: 500 mg Mirtazapine (Remeron) 30 mg PO QHS [facility] Last Admin: 12/01/17 19:47 Dose: 30 mg Senna/Docusate Sodium (Senokot-S, Paulina-Colace) 2 tablet PO BID [facility] Last Admin: 12/02/17 07:22 Dose: Not Given Sertraline HCl (Zoloft) 25 mg PO DAILY [facility] Last Admin: 12/02/17 07:23 Dose: 25 mg Medical Necessity - Tobacco Use Smoking Status: Former smoker Tobacco Use: Non-smoker Assessment/Plan All Active Problems Stroke (Acute) Debility s/p left basal ganglia, left occipital stoke and left M1/M2 stenosis. Complicated by a previous CVA with mild right sided residual weakness , HTN, HLD. Goal of rehab is to restore previous level of functional independent. Plan: - Physical therapy for gait and balance - Occupational Therapy for ADLs - Speech therapy - As needed analgesics - Bowel protocol - Stroke prevention on ASA, Plavix, and Statin - DVT prophylaxis: SCDs, Lovenox - Hypertension: Stable with good control, continue Lisinopril. Keep BP < 130/80 mmHg - Check LDL and Hba1c - Goal Hba1c <7% - Diabetes type 2 => continue home medication. - Start Family training on Saturday and , with possible discharge home on Saturday afternoon.
--- NOTE | 2017-12-02 11:58 | CASEMGMT ---
Team meeting held. Patient present as well as patient spouse. No discharge date set at this time. Patient currently private pay. Patient to have family training on Saturday and then this social media marketing analyst is to follow up on when patient and patient family believe they are able to meet patient needs within the home. No discharge date set at this time. Patient to continue at this time. Support given. Will continue to follow. Елена RADER, MARKET RESEARCH ANALYST
[2017-12-02 21:00] VITALS: BP 127/95; PULSE 81; RESP 20; TEMP 36.6; O2SAT 94; BMI 30.9
[2017-12-02] MEDS: Atorvastatin Calcium 80 MG Tablet PO (21:06)
[2017-12-02] MEDS: Mirtazapine 30 MG Tablet PO (21:06)
--- NOTE | 2017-12-03 02:57 | NURSING ---
Reviewed and agree with CARRIAGE DOGGER documentation and FIMs charting.
[2017-12-03] MEDS: Enoxaparin 40 MG/0.4 ML Syringe SC (05:24)
[2017-12-03 07:06] LABS: Bedside Glucose 100 mg/dL (70-110)
[2017-12-03 07:27] VITALS: BP 125/83; PULSE 94; RESP 18; TEMP 36.6; O2SAT 94
[2017-12-03] MEDS: Clopidogrel Bisulfate 75 MG Tablet PO (07:29)
[2017-12-03] MEDS: Aspirin 81 MG TAB.CHEW PO (07:29)
[2017-12-03] MEDS: Lisinopril 5 MG Tablet PO (07:29)
[2017-12-03] MEDS: Sertraline 50 MG Tablet 25 MG PO (07:29)
[2017-12-03 09:47] VITALS: BMI 30.9
--- NOTE | 2017-12-03 10:43 | PCM.PN.NEU ---
Patient Problems: Active and Suspected Problems Stroke (Acute) Subjective: Patient seen sitting quietly in recliner talking with , who is at bedside. No new complaints. Tolerating therapy. Denies any new focal deficits. Tolerating regular diet. - Physical Exam General: Alert, Oriented x3, Cooperative HEENT: Atraumatic, PERRLA, EOMI, Normocephalic Neck: Supple, No JVD, Negative Carotid Bruits Lungs: Clear to auscultation, Normal air movement Cardiovascular: Regular rate, No murmurs Abdomen: Bowel Sounds Present, Soft, Non Tender Extremities: No edema, Capillary Refill Less than 3 Seconds Skin: No rashes, No breakdown Musculoskeletal: No Tenderness to Palpation of Joints or Extremities Neurological: Cranial nerves II-XII grossly intact Psych/Mental Status: Normal Affect, Appropriate, Alert and oriented to time, place, person, mood and affect Vital Signs Temp Pulse Resp BP Pulse Ox 97.9 F 94 18 125/83 H 94 12/03/17 07:27 12/03/17 07:27 12/03/17 07:27 12/03/17 07:27 12/03/17 07:27 Oxygen Delivery Method Room Air Weight: 89.8 kg Body Mass Index (BMI) 30.9 Intake and Output for Last 24 Hours 12/01/17 12/02/17 12/03/17 23:59 23:59 23:59 Intake Total 600 / 600 Balance 600 / 600 POC Glucose 12/03/17 07:02 POC Glucose 100 Active Medications Acetaminophen (Tylenol) 650 mg PO Q6H PRN PRN PRN Reason: Mild Pain (0-3/10)/Headache Last Admin: 11/27/17 11:00 Dose: 650 mg Aspirin (Aspirin, Baby) 81 mg PO DAILY@0800 [facility] Last Admin: 12/03/17 07:29 Dose: 81 mg Atorvastatin Calcium (Lipitor) 80 mg PO QHS [facility] Last Admin: 12/02/17 21:06 Dose: 80 mg Bisacodyl (Dulcolax) 10 mg RECTAL .PRN X 1 PRN PRN Reason: Constipation Clopidogrel Bisulfate (Plavix) 75 mg PO DAILY [facility] Last Admin: 12/03/17 07:29 Dose: 75 mg Enoxaparin Sodium (Lovenox) 40 mg SC DAILY@0600 [facility] Last Admin: 12/03/17 05:24 Dose: 40 mg Lisinopril (Zestril) 5 mg PO DAILY [facility] Last Admin: 12/03/17 07:29 Dose: 5 mg Magnesium Hydroxide (Milk Of Magnesia) 30 ml PO .PRN X 1 PRN PRN Reason: Constipation Metformin HCl (Glucophage) 500 mg PO BIDCM [facility] Last Admin: 12/03/17 07:29 Dose: 500 mg Mirtazapine (Remeron) 30 mg PO QHS [facility] Last Admin: 12/02/17 21:06 Dose: 30 mg Senna/Docusate Sodium (Senokot-S, Paulina-Colace) 2 tablet PO BID [facility] Last Admin: 12/03/17 07:29 Dose: Not Given Sertraline HCl (Zoloft) 25 mg PO DAILY [facility] Last Admin: 12/03/17 07:29 Dose: 25 mg Medical Necessity - Tobacco Use Smoking Status: Former smoker Tobacco Use: Non-smoker Assessment/Plan All Active Problems Stroke (Acute) Debility s/p left basal ganglia, left occipital stoke and left M1/M2 stenosis. 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 Goal of rehab is to restore previous level of functional independent. Plan: - Physical therapy for gait and balance - Occupational Therapy for ADLs - Speech therapy - As needed analgesics - Bowel protocol - Stroke prevention on ASA, Plavix, and Statin - DVT prophylaxis: SCDs, Lovenox - Hypertension: Stable with good control, continue Lisinopril. Keep BP < 130/80 mmHg - Check LDL and Hba1c - Goal Hba1c <7% - Diabetes type 2 => continue home medication. - Start Family training on Saturday and , with possible discharge home on Saturday afternoon.
[2017-12-03 19:47] VITALS: BP 121/67; PULSE 83; RESP 16; TEMP 36.9; O2SAT 94
[2017-12-03] MEDS: Atorvastatin Calcium 80 MG Tablet PO (20:46)
[2017-12-03] MEDS: Mirtazapine 30 MG Tablet PO (20:46)
[2017-12-03 22:24] VITALS: BMI 30.9
--- NOTE | 2017-12-04 01:31 | NURSING ---
Reviewed and agree with AFTER SCHOOL COORDINATOR documentation and FIMS charting.
[2017-12-04] MEDS: Enoxaparin 40 MG/0.4 ML Syringe SC (05:55)
[2017-12-04 06:50] LABS: Bedside Glucose 95 mg/dL (70-110)
[2017-12-04 07:35] VITALS: BP 135/88; PULSE 61; RESP 18; TEMP 36.6; O2SAT 93
[2017-12-04] MEDS: Aspirin 81 MG TAB.CHEW PO (07:42)
[2017-12-04] MEDS: Lisinopril 5 MG Tablet PO (07:42)
[2017-12-04] MEDS: Clopidogrel Bisulfate 75 MG Tablet PO (07:42)
[2017-12-04] MEDS: Sertraline 50 MG Tablet 25 MG PO (07:42)
--- NOTE | 2017-12-04 09:23 | PCM.PN.NEU ---
Patient Problems: Active and Suspected Problems Stroke (Acute) Subjective: Patient seen and examined. Has a slight headache, this morning, Blood pressure is stable. Denies any dizziness, blurry vision or double vision. He is tolerating a regular diet, no issues with GI/. Family is here for family training today and tomorrow. Possible discharge late tomorrow afternoon or early Saturday morning. - Physical Exam General: Alert, Oriented x3, Cooperative HEENT: Atraumatic, PERRLA, EOMI, Normocephalic Neck: Supple, No JVD, Negative Carotid Bruits Lungs: Clear to auscultation, Normal air movement Cardiovascular: Regular rate, No murmurs Abdomen: Bowel Sounds Present, Soft, Non Tender Extremities: No edema, Capillary Refill Less than 3 Seconds Skin: No rashes, No breakdown Musculoskeletal: No Tenderness to Palpation of Joints or Extremities Neurological: Cranial nerves II-XII grossly intact Psych/Mental Status: Normal Affect, Appropriate, Alert and oriented to time, place, person, mood and affect Vital Signs Temp Pulse Resp BP Pulse Ox 97.9 F 61 18 135/88 H 93 12/04/17 07:35 12/04/17 07:35 12/04/17 07:35 12/04/17 07:35 12/04/17 07:35 Oxygen Delivery Method Room Air Weight: 91.4 kg Body Mass Index (BMI) 30.9 Intake and Output for Last 24 Hours 12/02/17 12/03/17 12/04/17 23:59 23:59 23:59 Intake Total 320 / 320 Balance 320 / 320 POC Glucose 12/04/17 06:42 POC Glucose 95 Active Medications Acetaminophen (Tylenol) 650 mg PO Q6H PRN PRN PRN Reason: Mild Pain (0-3/10)/Headache Last Admin: 11/27/17 11:00 Dose: 650 mg Aspirin (Aspirin, Baby) 81 mg PO DAILY@0800 [facility] Last Admin: 12/04/17 07:42 Dose: 81 mg Atorvastatin Calcium (Lipitor) 80 mg PO QHS [facility] Last Admin: 12/03/17 20:46 Dose: 80 mg Bisacodyl (Dulcolax) 10 mg RECTAL .PRN X 1 PRN PRN Reason: Constipation Clopidogrel Bisulfate (Plavix) 75 mg PO DAILY [facility] Last Admin: 07/18/18 07:42 Dose: 75 mg Enoxaparin Sodium (Lovenox) 40 mg SC DAILY@0600 [facility] Last Admin: 12/04/17 05:55 Dose: 40 mg Lisinopril (Zestril) 5 mg PO DAILY [facility] Last Admin: 12/04/17 07:42 Dose: 5 mg Magnesium Hydroxide (Milk Of Magnesia) 30 ml PO .PRN X 1 PRN PRN Reason: Constipation Metformin HCl (Glucophage) 500 mg PO BIDCM [facility] Last Admin: 12/04/17 07:42 Dose: 500 mg Mirtazapine (Remeron) 30 mg PO QHS [facility] Last Admin: 12/03/17 20:46 Dose: 30 mg Senna/Docusate Sodium (Senokot-S, Paulina-Colace) 2 tablet PO BID [facility] Last Admin: 12/04/17 07:43 Dose: Not Given Sertraline HCl (Zoloft) 25 mg PO DAILY [facility] Last Admin: 12/04/17 07:42 Dose: 25 mg Medical Necessity - Tobacco Use Smoking Status: Former smoker Tobacco Use: Non-smoker Assessment/Plan All Active Problems Stroke (Acute) Debility s/p left basal ganglia, left occipital stoke and left M1/M2 stenosis. 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 Goal of rehab is to restore previous level of functional independent. Plan: - Physical therapy for gait and balance - Occupational Therapy for ADLs - Speech therapy - As needed analgesics - Bowel protocol - Stroke prevention on ASA, Plavix, and Statin - DVT prophylaxis: SCDs, Lovenox - Hypertension: Stable with good control, continue Lisinopril. Keep BP < 130/80 mmHg - Check LDL and Hba1c - Goal Hba1c <7% - Diabetes type 2 => continue home medication. - Family training on this morning and , with possible discharge home late afternoon early Saturday morning.
[2017-12-04] MEDS: Acetaminophen 325 MG Tablet 650 MG PO (10:44)
[2017-12-04 13:22] VITALS: BMI 30.9
--- NOTE | 2017-12-04 17:45 | CASEMGMT ---
Social Work Met with patient and patient family in room. Patient and patient family requesting for discharge date to be set for 12/05/17. Team is agreeable to discharge date. Patient plans to discharge home with spouse and family for support. This social worker psychiatric communicating that team is recommending for patient to have continued therapy within the home or outpatient. Patient and patient family declining for patient to have continued therapy within the home or community. Patient family planning to complete home exercise programs at home. Patient family planning to provide transportation home for patient at time of discharge. Patient also needs a walker, patient family planning to picker packer walker (patient does not have insurance). No further needs identified at this time. Support given. Proposed discharge date: 12/05/17 PLAN: Discharge home with spouse. Елена RADER, WINDER OPERATOR
[2017-12-04 21:15] VITALS: PULSE 77; RESP 18; O2SAT 92; BMI 30.9
[2017-12-04] MEDS: Atorvastatin Calcium 80 MG Tablet PO (21:19)
[2017-12-04] MEDS: Mirtazapine 30 MG Tablet PO (21:20)
--- NOTE | 2017-12-05 01:25 | NURSING ---
Reviewed and agree with LPNs fims and handoff
[2017-12-05] MEDS: Enoxaparin 40 MG/0.4 ML Syringe SC (05:56)
[2017-12-05 07:06] LABS: Bedside Glucose 90 mg/dL (70-110)
[2017-12-05 07:50] VITALS: BP 127/65; PULSE 65; RESP 16; TEMP 36.8; O2SAT 96
[2017-12-05] MEDS: Clopidogrel Bisulfate 75 MG Tablet PO (07:56)
[2017-12-05] MEDS: Sertraline 50 MG Tablet 25 MG PO (07:56)
[2017-12-05] MEDS: Aspirin 81 MG TAB.CHEW PO (07:56)
[2017-12-05] MEDS: Lisinopril 5 MG Tablet PO (07:56)
--- NOTE | 2017-12-05 13:34 | PCM.DC ---
- Discharge Diagnoses Current Active Problems: Current Active and Chronic Problems Stroke (Acute) Reason(s) for Visit for Discharge Instructions: CVA You will use the following diet at home:: Cardiac Your food should be the consistency of: Regular Discharge Activity: May Not Drive, May not drive while taking narcotic pain medications., May Shower, May Take a Tub Bath, Use Walker Weight Bearing Status: Weight bearing as tolerated Call your doctor if you observe: Fever of 101 or Higher, Coldness, Increased Pain, Numbness or Tingling, Change in Color, Inability to urinate, Inability to have a bowel movement, Using more than one pad per hour, Shortness of breath, Dizziness, Fainting spells, Swelling in the ankles, Chest pain, Prolonged hiccoughing, Increased palpitations (irregular heartbeat), Calf discomfort, Uncontrolled pain Allergies/Adverse Reactions: Allergies No Known Allergies Allergy (Verified 11/26/17 16:59) Medications to take at Discharge Aspirin [Aspirin, Baby] 81 mg PO DAILY@0800 11/26/17 Acetaminophen [Tylenol Tablet] 650 mg PO Q6H PRN PRN tablet 12/05/17 Atorvastatin Calcium [Lipitor] 80 mg PO QHS #60 tab 12/05/17 Clopidogrel Bisulfate [Plavix] 75 mg PO DAILY #60 tab 12/05/17 Lisinopril [Zestril] 5 mg PO DAILY #60 tab 12/05/17 Metformin HCl [Glucophage] 500 mg PO BIDCM #120 tab 12/05/17 Mirtazapine [Remeron] 30 mg PO QHS #60 tab 12/05/17 Sertraline HCl [Zoloft] 25 mg PO DAILY #60 tab 12/05/17 The following prescriptions were given: Atorvastatin Calcium [Lipitor] 80 mg PO QHS #60 tab Clopidogrel Bisulfate [Plavix] 75 mg PO DAILY #60 tab Lisinopril [Zestril] 5 mg PO DAILY #60 tab Mirtazapine [Remeron] 30 mg PO QHS #60 tab Sertraline HCl [Zoloft] 25 mg PO DAILY #60 tab Metformin HCl [Glucophage] 500 mg PO BIDCM #120 tab Primary Care Physician: [facility] Doctor,Out of [Primary Care Provider] - Test Results: Test results from this visit will be discussed in further detail at your follow-up appointment, if applicable. Please Follow Up With: Arabella Brunson MD Please Follow Up With: Hoang Mehta Please Follow Up With: Rosalind Mcmillan TOPOGRAPHICAL DRAFTER, [facility] When: December 30 @ 10AM Proposed Discharge Date: 12/05/17
--- NOTE | 2017-12-05 13:39 | DCINST_ITS ---
- Discharge Diagnoses Current Active Problems: Current Active and Chronic Problems Stroke (Acute) Reason(s) for Visit for Discharge Instructions: CVA You will use the following diet at home:: Cardiac Your food should be the consistency of: Regular Discharge Activity: May Not Drive, May not drive while taking narcotic pain medications., May Shower, May Take a Tub Bath, Use Walker Weight Bearing Status: Weight bearing as tolerated Call your doctor if you observe: Fever of 101 or Higher, Coldness, Increased Pain, Numbness or Tingling, Change in Color, Inability to urinate, Inability to have a bowel movement, Using more than one pad per hour, Shortness of breath, Dizziness, Fainting spells, Swelling in the ankles, Chest pain, Prolonged hiccoughing, Increased palpitations (irregular heartbeat), Calf discomfort, Uncontrolled pain Allergies/Adverse Reactions: Allergies No Known Allergies Allergy (Verified 11/26/17 16:59) Medications to take at Discharge Aspirin [Aspirin, Baby] 81 mg PO DAILY@0800 11/26/17 Acetaminophen [Tylenol Tablet] 650 mg PO Q6H PRN PRN tablet 12/05/17 Atorvastatin Calcium [Lipitor] 80 mg PO QHS #60 tab 12/05/17 Clopidogrel Bisulfate [Plavix] 75 mg PO DAILY #60 tab 12/05/17 Lisinopril [Zestril] 5 mg PO DAILY #60 tab 12/05/17 Metformin HCl [Glucophage] 500 mg PO BIDCM #120 tab 12/05/17 Mirtazapine [Remeron] 30 mg PO QHS #60 tab 12/05/17 Sertraline HCl [Zoloft] 25 mg PO DAILY #60 tab 12/05/17 The following prescriptions were given: Atorvastatin Calcium [Lipitor] 80 mg PO QHS #60 tab Clopidogrel Bisulfate [Plavix] 75 mg PO DAILY #60 tab Lisinopril [Zestril] 5 mg PO DAILY #60 tab Mirtazapine [Remeron] 30 mg PO QHS #60 tab Sertraline HCl [Zoloft] 25 mg PO DAILY #60 tab Metformin HCl [Glucophage] 500 mg PO BIDCM #120 tab Primary Care Physician: [facility] Doctor,Out of [Primary Care Provider] - Test Results: Test results from this visit will be discussed in further detail at your follow- up appointment, if applicable. Please Follow Up With: Arabella Brunson MD Please Follow Up With: Hoang Mehta Please Follow Up With: Rosalind Mcmillan EMERGENCY DETAIL DRIVER, [facility] When: December 30 @ 10AM Proposed Discharge Date: 12/05/17
--- NOTE | 2017-12-05 13:39 | PCM.RU.DC ---
Rehab Discharge Summary DATE OF ADMISSION: 11/26/17 DATE OF DISCHARGE: 12/05/17 - Rehab Diagnosis CVA Discharge Diet: 2000 mg Sodium Diet Discharge Activity: May Not Drive, May not drive while taking narcotic pain medications., May Shower, May Take a Tub Bath, Use Walker Weight Bearing Status: Weight bearing as tolerated Call your doctor if you observe: Fever of 101 or Higher, Coldness, Increased Pain, Numbness or Tingling, Change in Color, Inability to urinate, Inability to have a bowel movement, Using more than one pad per hour, Shortness of breath, Dizziness, Fainting spells, Swelling in the ankles, Chest pain, Prolonged hiccoughing, Increased palpitations (irregular heartbeat), Calf discomfort, Uncontrolled pain Home Medications: Medications to take at Discharge Aspirin [Aspirin, Baby] 81 mg PO DAILY@0800 11/26/17 Acetaminophen [Tylenol Tablet] 650 mg PO Q6H PRN PRN tablet 12/05/17 Atorvastatin Calcium [Lipitor] 80 mg PO QHS #60 tab 12/05/17 Clopidogrel Bisulfate [Plavix] 75 mg PO DAILY #60 tab 12/05/17 Lisinopril [Zestril] 5 mg PO DAILY #60 tab 12/05/17 Metformin HCl [Glucophage] 500 mg PO BIDCM #120 tab 12/05/17 Mirtazapine [Remeron] 30 mg PO QHS #60 tab 12/05/17 Sertraline HCl [Zoloft] 25 mg PO DAILY #60 tab 12/05/17 Following Prescrptions Were Given to Patient: Atorvastatin Calcium [Lipitor] 80 mg PO QHS #60 tab Clopidogrel Bisulfate [Plavix] 75 mg PO DAILY #60 tab Lisinopril [Zestril] 5 mg PO DAILY #60 tab Mirtazapine [Remeron] 30 mg PO QHS #60 tab Sertraline HCl [Zoloft] 25 mg PO DAILY #60 tab Metformin HCl [Glucophage] 500 mg PO BIDCM #120 tab Primary Care Physician: Valdo Mosley,Out of [Primary Care Provider] - Please Follow Up With: Arabella Brunson MD Please Follow Up With: Hoang Mehta Please Follow Up With: Rosalind Mcmillan FRAME NAILER, [facility] When: December 30 @ 10AM Disposition: Home - Patient declined outpatient therapy Minutes spent on discharge:: 40 Patient Condition:: Good Rehab Course The patient is a 67 year old right handed male admitted on 11/26/17 from [facility] to the rehab unit for rehabilitation for debility, s/p left basal ganglia, left occipital stoke and left M1/M2 stenosis. 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 The patient lives with in a 2 story home with at least 12 steps to get into the house. The patient was previously completely functionally independent, doing all his own ADLs. He is admitted to the rehab unit in order to restore his previous level of functional independence. With Physical therapy, he is stand by assist for getting in and out of bed, and coming to a stand from a sitting position. He is able to walk about 130 feet with a walker at contact guard, he does occasionally requires cues to take bigger steps when walking. They have noted some right leg coordination issues which they will continue to work on in the coming week. With Occupational therapy, he is supervision for setup to do his personal care of his upper body, and contact guard for his lower body, and toileting. He does require cues to use his right hand at times. With Speech therapy, they are continuing to work on his problems with his expressive language and memory recall. He is on a regular diet with thin liquids, and is doing well, does require occasional cues to take smaller bites and sips. With Nursing he is minimal assistance for toileting, he is having some issues with incontinence at times, he is able to tell the staff he has to go but is unable to hold it until they arrive to take him to the bathroom. Family training was done on Saturday the family felt very comfortable with helping the patient during personal care, with walking using the walker and with feeding if he needed additional help. They declined outpatient therapy, electing to do home exercises they had been given. Patient will follow up in the clinic in 4 weeks. Per OSH: Patient was last seen normal by his around 8:30 AM, Around 10 Am he was noted to have recurrent falls and right arm weakness. Was taken to [facility] his initial NIHSS was reported 17, then improved to 4. CT brain showed bilateral chronic cerebellar and thalamic infarcts, no acute changes. CTA brain showed thrombus in proximal left MCA and occluded L intracranial L ICA. He was transferred to [facility] where he was seen by Dr. Mendoza, it was determined that he was not a candidate for TPA since his weakness and fall occurred at 10 AM, he was out of the window. Meaningful Use Info Meaningful Use Diagnoses (Choose all that apply): Ischemic CVA - CVA Therapy Assessed for PT,OT and/or ST?: Yes - Ischemic Stroke Antithrombotic order at d/c?: Yes Dx of Atrial fib/flutter?: No Statins at discharge?: Yes Primary Dx Acute Ischemic CVA?: Yes IV tPA ordered during stay?: No Reason IV t-PA not ordered: Medical Contraindication
[2017-12-05 17:00] VITALS: BMI 30.9
[2017-12-05 17:45] VITALS: BP 127/65; PULSE 65; RESP 16; TEMP 36.8; O2SAT 96
--- NOTE | 2017-12-05 17:45 | NURSING ---
Patient and given discharge instructions and verbalized understanding. verbalized teaching of DM, HTN, Stroke, Medication list and appointments to follow as well as care of her .
== END 2017-12-05 17:50 | disposition home or self-care (01) | DRG 57 ==
PROVIDERS: Internal Medicine; Nurse Practitioner Acute Care; Admitting Provider Psychiatry & Neurology Neurology; Visit Provider Internal Medicine
DX: I69.351 Hemiplegia and hemiparesis following cerebral infarction affecting right dominant side (principal); I10 Essential (primary) hypertension; E78.5 Hyperlipidemia, unspecified; E11.9 Type 2 diabetes mellitus without complications; Z87.891 Personal history of nicotine dependence
CPT/HCPCS: 36415; 80048; 82962; 83036; 85027; 92507; 92523; 97110; 97112; 97116; 97162; 97166; 97530; 97535; 97802

== ENCOUNTER → 2018-04-04 10:34 | Outpatient (CLI) | payer OTHER, SELFPAY ==
[2018-04-04 14:34] LABS: Color, Urine Yellow (Yellow); Glucose, Dipstick Normal (Normal); Ketone-Dipstick Negative (Negative); Leukocyte Esterase-Dipstick Negative /ul (Negative); Nitrite-Dipstick Negative (Negative); Occult Blood-Urine Negative /ul (Negative); Protein-Dipstick Negative (Negative); Specific Gravity, Urine 1.025 (1.002-1.030); Urine Bilirubin Dipstick Negative (Negative); Urine Clarity Clear (Clear); Urine Urobilinogen Normal (Normal)
== END ==
PROVIDERS: Family Provider Clinical Nurse Specialist Acute Care; PCP Clinical Nurse Specialist Acute Care; Referring Provider Clinical Nurse Specialist Acute Care; Visit Provider Clinical Nurse Specialist Acute Care
DX: R35.0 Frequency of micturition (principal); R32 Unspecified urinary incontinence
CPT/HCPCS: 81002; 87086; 87088

== ENCOUNTER → 2018-07-01 13:26 | Outpatient (CLI) | payer OTHER, SELFPAY ==
[2018-06-24 18:07] LABS: BUN 21 mg/dL (7-18); Creatinine, Serum 1.02 mg/dL (0.70-1.30); EST Glomerular Filtration Rate 78 mL/min (>60); Est Glom Filt Rate - Afr Amer 94 mL/min (>60)
--- NOTE | 2018-07-01 13:29 | CT_ITS ---
We are attempting to reach Damian Coto MD to discuss findings. An addendum with communication details will be sent when the communication is complete. STUDY: CTA OF THE BRAIN REASON FOR EXAM: Male, 67 years old. Right carotid stenosis occlusion. RADIATION DOSAGE (If Supplied By Facility): CTDIvol = ( 30.35 ) mGy, DLP = ( 1644.62 ) mGycm TECHNIQUE: CT angiography was performed with a multi-detector CT scanner. Data acquisition was obtained from the skull base through the vertex following intravenous administration of . MIP images were reconstructed from the axial data set. Post-processing of the angiographic images was performed, with multiplanar reformation and 3D reconstruction. Individualized dose optimization techniques were used for this CT. COMPARISON: None. FINDINGS: CT brain without contrast: There is an acute to subacute infarct of the right cerebellar hemisphere involving the right superior cerebellar arterial distribution. Low-attenuation changes in the periventricular white matter is consistent with microvascular ischemic changes. Ventriculomegaly is commensurate with the degree of sulcal atrophy. Moderate involutional changes are present. There is no bony abnormality. CTA brain: Normal right petrous carotid artery. The left petrous carotid artery is occluded. There is calcified plaque formation of the right cavernous carotid artery, without a cross-sectional luminal stenosis. The left cavernous carotid artery is occluded. There is reconstitution or retrograde filling distally. Normal right A1 segment of the anterior cerebral artery. Normal left A1 segment of the anterior cerebral artery. Normal intact anterior communicating artery (ACOM). Normal bilateral A2 segments of the anterior cerebral arteries. Normal right M1 and M2 segments of the middle cerebral arteries, with a normal M1 bifurcation. Normal left M1 and M2 segments of the middle cerebral arteries, with a normal M1 bifurcation. There is non-visualization of the right posterior communicating artery (PCOM). There is non-visualization of the left posterior communicating artery (PCOM). Normal bilateral vertebral arteries. Normal basilar artery with a normal basilar bifurcation. The visualized bilateral superior cerebellar (SCA) arteries are normal. Normal bilateral P1, P2 and visualized P3 segments of the posterior cerebral arteries. There is no demonstrated aneurysm of the [place]. CT/CTA Head W/WO Contrast IMPRESSION: 1. Occluded LEFT petrous and cavernous carotid artery with distal reconstitution or retrograde filling. 2. Acute to subacute RIGHT cerebellar infarct, right SCA distribution. Electronically Signed: Kim Harrington MD at 23:52 EST Tel , Service support ,
--- NOTE | 2018-07-01 13:36 | CT_ITS ---
STUDY: CTA NECK WITH CONTRAST REASON FOR EXAM: Male, 67 years old. Right carotid stenosis/occlusion. RADIATION DOSAGE (If Supplied By Facility): CTDIvol = ( 30.35 ) mGy, DLP = ( 1644.62 ) mGycm TECHNIQUE: CT angiography with multi-detector data acquisition was performed from the aortic arch to the skull base following intravenous administration of 100 mL of Isovue-370 contrast. MIP images were reconstructed from the axial data set. Post-processing of the angiographic images was performed, with multiplanar reformation and 3D reconstruction. Individualized dose optimization techniques were used for this CT. COMPARISON: None. FINDINGS: AORTIC ARCH: There is mild atherosclerotic calcific plaque formation of the aortic arch and great vessels arising from the aortic arch, without a hemodynamically significant stenosis. There is a bovine origin of the great vessels with a common origin of the brachiocephalic and left common carotid artery. Normal origin of the left subclavian artery. 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 There is mild atherosclerotic plaque formation of the right carotid bulb. The patient has undergone prior endovascular stenting of the right carotid artery from the distal common carotid through the proximal centimeters of the internal carotid artery. This stented segment is widely patent. Normal visualized cervical portion of the right internal carotid artery. Possible stenosis at the origin of the otherwise widely patent right external carotid artery (ECA), which is crossed by the endovascular stent. LEFT CAROTID ARTERIES: Normal left common carotid artery (CCA). There is moderate mixed calcified and noncalcified atherosclerotic plaque formation of the carotid bulb. There is continuation of mixed calcified and noncalcified plaquing through the proximal left internal carotid artery, which is occluded. No distal reconstitution of the cervical portion of the left internal carotid artery. There is moderate atherosclerotic plaque formation of the origin of the left external carotid artery with an estimated stenosis of 50-69% stenosis. VERTEBRAL ARTERIES: There is severe narrowing of the first few centimeters of the right vertebral artery, which then regains normal caliber at the C5-6 level and otherwise remains widely patent to the foramen magnum. The left vertebral artery is unremarkable. CT/CTA Neck W/WO Contrast IMPRESSION: 1. Widely patent prior endovascular stenting of right carotid/internal carotid artery. 2. Mixed calcified and noncalcified atherosclerotic plaque left carotid bifurcation with occlusion of the left internal carotid artery. There is also 50-69% osteal stenosis of the left external carotid artery. 3. Severe narrowing of the proximal right vertebral artery, then regaining normal caliber at C5-6 and remaining patent to the base of the skull. 4. 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 Electronically Signed: Carlos Gutierrez MD at 8:30 EST , Service support ,
== END ==
PROVIDERS: Family Provider Family Medicine; PCP Family Medicine; Referring Provider Radiology Diagnostic Radiology; Visit Provider Radiology Diagnostic Radiology
DX: Z01.812 Encounter for preprocedural laboratory examination (principal); I65.21 Occlusion and stenosis of right carotid artery; Z09 Encounter for follow-up examination after completed treatment for conditions other than malignant neoplasm
CPT/HCPCS: 36415; 70496; 70498; 82565; 84520; Q9967